=== PATIENT | female | born 1995 | race Caucasian/White ===

== ENCOUNTER 2019-11-05 21:59 | Emergency (ER) | payer SELFPAY ==
--- NOTE | 2019-11-05 22:20 | NUR ---
PATIENT CALLED FOR TRIAGE WITH NO RESPONSE. ADMITTING TOLD BY PATIENT THAT SHE HAD TO LEAVE.
== END 2019-11-05 22:20 | disposition left against medical advice (07) ==
LOC: MED 21:59
DX: Z53.21 Procedure and treatment not carried out due to patient leaving prior to being seen by health care provider (principal)